=== PATIENT | female | born 1980 | race Caucasian/White ===

== ENCOUNTER → 2023-05-18 | Outpatient (CLI) | payer OTHER ==
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
== END | disposition home or self-care (01) ==
LOC: RADXRMAIN 09:07
PROVIDERS: ATTEND Emergency Medicine
DX: S63.501A Unspecified sprain of right wrist, initial encounter (principal); S53.401A Unspecified sprain of right elbow, initial encounter; M79.641 Pain in right hand; M79.631 Pain in right forearm